=== PATIENT | female | born 1985 | race Caucasian/White ===

== ENCOUNTER → 2021-02-20 14:36 | Outpatient (CLI) | payer OTHER, SELFPAY ==
--- NOTE | 2021-02-20 14:37 | DI.US.S_ITS ---
LIMITED ULTRASOUND OF RIGHT BREAST AND AXILLA: 02/20/2021 CLINICAL: Patient returns today to evaluate two focal asymmetries in the right breast. Comparison is made to exams dated: 01/18/2021 breast MRI, 07/11/2020 ultrasound, 07/06/2020 breast MRI, and 11/19/2019 mammogram - [facility]. Color flow and real-time ultrasound of the right breast 9-10 o'clock, and axilla regions were performed. Austin scale images of the real-time examination were reviewed. There is a 0.8 cm x 0.8 cm x 0.6 cm irregular mass with a microlobulated margin in the right breast at 9:30 posterior depth 7 cm from the nipple. This irregular mass is hypoechoic with posterior acoustic enhancement. This correlates smaller than estimated on breast MRI, but corresponds fairly well with mammography findings. Color flow imaging demonstrates that there is increased vascularity in surrounding tissue. There also is a 0.9 cm x 0.6 cm x 0.3 cm oval mass with a circumscribed margin in the right breast at 9 o'clock posterior depth 7 cm from the nipple. This oval mass is hypoechoic. This correlates with mammography and breast MRI findings. Color flow imaging demonstrates that there is vascularity present. No significant abnormalities were seen sonographically in the right axilla. IMPRESSION: SUSPICIOUS OF MALIGNANCY The 0.8 cm x 0.8 cm x 0.6 cm irregular mass in the right breast at 9:30 posterior depth correlates with the MRI findings and is suspicious of malignancy. An ultrasound guided biopsy is recommended. The 0.9 cm x 0.6 cm x 0.3 cm oval mass in the right breast at 9 o'clock posterior depth is suspicious of malignancy. An ultrasound guided biopsy is recommended. Findings and recommendations were discussed with the patient in person by Dr. Victor at time of exam. This exam was interpreted at Station ID: [id number]. Electronically Signed By: Dolly underwood/:02/20/2021 17:15:13 letter sent: Biopsy Required Ultrasound BI-RADS: 4 Suspicious for malignancy
--- NOTE | 2021-02-20 14:37 | DI.MG.S_ITS ---
BILATERAL DIGITAL DIAGNOSTIC MAMMOGRAM 3D/2D: 02/20/2021 CLINICAL: Abnormal MRI. Comparison is made to exams dated: 01/18/2021 breast MRI, 07/06/2020 breast MRI, and 11/19/2019 mammogram - [facility]. The tissue of both breasts is heterogeneously dense. This may lower the sensitivity of mammography. There is a 1.1 cm oval asymmetry with an indistinct margin in the right breast at 9:30 posterior depth. This is seen in additional views. This is more prominent compared to prior mammogram and correlates with breast MRI findings. There also is a 9 mm oval equal density asymmetry with a microlobulated margin in the right breast at 9 o'clock middle depth. This is seen in additional views. This was also present on the MRI, but not well seen on prior mammogram. No other significant masses, calcifications, or other findings are seen in either breast. IMPRESSION: INCOMPLETE: NEEDS ADDITIONAL IMAGING EVALUATION The 1.1 cm oval asymmetry in the right breast at 9:30 posterior depth correlates with MRI finding but remains indeterminate. The 9 mm oval equal density asymmetry in the right breast at 9 o'clock middle depth resembles a lymph node but remains indeterminate. An ultrasound of these areas is recommended. This was performed immediately following this exam. This exam was interpreted at Station ID: [id number]. NOTE: For mammograms, a report in lay terms will be sent to the patient. Approximately 15% of breast malignancies will not be visualized mammographically. In the management of a palpable breast mass, a negative mammogram must not discourage biopsy of a clinically suspicious lesion. Electronically Signed By: Dolly underwood/:02/20/2021 16:56:25 ACR BI-RADS Category 0: Incomplete [id number]
== END ==
PROVIDERS: PCP Family Medicine; Referring Provider Family Medicine; Visit Provider Family Medicine
DX: R92.8 Other abnormal and inconclusive findings on diagnostic imaging of breast (principal); N63.11 Unspecified lump in the right breast, upper outer quadrant; N63.15 Unspecified lump in the right breast, overlapping quadrants
CPT/HCPCS: 76642; 77066; G0279

== ENCOUNTER → 2021-02-28 07:35 | Outpatient (CLI) | payer OTHER, SELFPAY ==
--- NOTE | 2021-02-28 | DI.US.S_ITS ---
MULTIPLE ULTRASOUND GUIDED BIOPSIES RIGHT BREAST USING VACUUM DEVICE WITH MARKING DEVICES INSERTED AND POST MAMMOGRAPHIC AND ULTRASOUND IMAGIN02/28/2021 CLINICAL: Two right breast masses. PATIENT CONSENT: Risks (minor bleeding, infection, vasovagal reaction and repeat procedure), benefits and alternatives were explained to the patient and written informed consent was obtained. Correlation is made to exams dated: 02/28/2021 ultrasound biopsy, 02/28/2021 mammogram, 02/20/2021 ultrasound, 02/20/2021 mammogram - [facility], 01/18/2021 breast MRI, and 07/11/2020 ultrasound - [facility]. An ultrasound guided biopsy using real-time ultrasound was performed for the concerning 9 cm x 6 cm x 9 cm circumscribed oval mass located in the right breast at 9:30 o'clock anterior depth. The skin was prepped in the usual manner. Local anesthetic was administered to the access site. A skin rika was made in the breast. The abnormality was approached from the lateral aspect. A 13 gauge biopsy needle was placed adjacent to the abnormality under ultrasound guidance. Once the needle was documented to be in the correct location, four specimens were obtained using the Mammotome biopsy system. The patient received additional local anesthetic during the procedure. A Vision marker clip was inserted into the biopsy cavity. Post procedure mammographic and ultrasound imaging demonstrates the location device at the targeted area and partial removal of the abnormality. The specimens were sent to the laboratory for pathological analysis, labeled at #1, 9:30. A second ultrasound guided biopsy using real-time ultrasound was performed for the concerning 6 cm x 7 cm x 6 cm circumscribed oval mass located in the right breast at 9:00 o'clock middle depth. The skin was prepped in the usual manner. Local anesthetic was administered to the access site. The same single skin rika was used. The abnormality was approached from the lateral aspect. A 13 gauge biopsy needle was placed adjacent to the abnormality under ultrasound guidance. Once the needle was documented to be in the correct location, four specimens were obtained using the Mammotome biopsy system. The patient received additional local anesthetic during the procedure. A mammo clip was inserted into the biopsy cavity. A skin closure strip and a sterile dressing were applied to the single access site. Post procedure mammographic and ultrasound imaging demonstrates the location device at the targeted area and partial removal of the abnormality. The specimens were sent to the laboratory for pathological analysis. This second biopsy was titled #2, 9:00. IMPRESSION: ULTRASOUND GUIDED BIOPSY MALIGNANT Ultrasound guided biopsy of the 0.9 cm x 0.6 cm x 0.9 cm mass in the right breast at 9 o'clock anterior depth 7 cm from the nipple was successful. Pathology indicates malignant ductal carcinoma in situ (DCIS). Pathology results are concordant with imaging findings. A surgical/oncologic consultation is recommended. Ultrasound guided biopsy of the 0.6 cm x 0.7 cm x 0.6 cm mass in the right breast at 9 o'clock middle depth 7 cm from the nipple was successful. Pathology indicates benign finding. Pathology results are concordant with imaging findings. This exam was interpreted at Station ID: [id number]. Chavez Aly M.D. [facility],at/:03/02/2021 13:17:47
--- NOTE | 2021-02-28 | DI.MG.S_ITS ---
UNILATERAL RIGHT DIGITAL DIAGNOSTIC MAMMOGRAM POST-NEEDLE BIOPSY: 02/28/2021 CLINICAL: Right breast mass. Comparison is made to exams dated: 02/20/2021 mammogram - , 01/18/2021 breast MRI, and 07/06/2020 breast MRI - [facility]. The tissue of right breast is heterogeneously dense. This may lower the sensitivity of mammography. The two biopsy markers are in expected positions representing the two lesions. Lesion 1 is larger, at 9:30, and is associated with the Vision marker. Lesion 2 is smaller, at 9:00 nearby, and is associated with the smaller spiral marker. IMPRESSION: POST PROCEDURE MAMMOGRAM FOR MARKER PLACEMENT The two lesions that were biopsied today under US guidance are localized by the two types of post-biopsy markers as detailed above. This exam was interpreted at Station ID: [id number]. NOTE: For mammograms, a report in lay terms will be sent to the patient. Approximately 15% of breast malignancies will not be visualized mammographically. In the management of a palpable breast mass, a negative mammogram must not discourage biopsy of a clinically suspicious lesion. Electronically Signed By: Chavez Rabago M.D. sdh/:02/28/2021 16:17:26 ACR BI-RADS Category Post-procedure mammogram for marker placement
--- NOTE | 2021-02-28 | PATH_ITS ---
[facility] Accession Number: [id number] . 01 Material submitted: . PART A: breast - RIGHT BREAST @930 7CMFN MASS PART B: breast - RIGHT BREAST @9 OCLOCK 7CMFN MASS . 01 Diagnosis: A. Right Breast, Mass, 7 cm From Nipple, 9:30, Image-Guided Core Biopsy: Ductal carcinoma in situ. - Architecture: Solid type. - Nuclear Grade: High (grade 3). - Necrosis: Not identified. - Microcalcifications: Not associated. - Predictive Markers: Estrogen and progesterone receptors by immunohistochemistry pending, reported as an addendum. . B. Right Breast, Mass, 7 cm From Nipple, 9:00, Image-Guided Core Biopsy: Benign lymph node. Fibroglandular breast tissue without significant pathologic abnormality. Negative for malignancy. [facility] 03/01/2021 1615 Local . 01 Comment: The results of specimen A (right breast 9:30, 7 cm from nipple) are verbally provided by Dr. Reed to Nurse Laverne on 03/01/2021 at 4 PM. . 01 Electronically signed: . Lois Reed MD, Pathologist NPI- [id number] . 01 Gross description: . Received two formalin-filled containers, both labeled with the patient's name: . A. In a container labeled R breast 9:30, 7 cm FN, the specimen is received with a plastic filter in container, sample loose in container and consists of multiple yellow-neri pieces of soft tissue which range in size from 0.1 x 0.1 x 0.1 cm to 1.0 x 0.4 x 0.3 cm. All fragments are totally submitted in cassette A. B. In a container labeled R breast 9 o'clock, 7 cm FN, the specimen is received with a plastic filter in container, sample loose in container and consists of multiple fragments of yellow-neri soft tissue which range in size from less than 0.1 cm to 0.7 x 0.4 x 0.4 cm. All fragments are totally submitted in cassette B. . Possible collection date and time per requisition: 02/28/21 at 9:42. Total fixation time: Approximately 16 hours. ([id number]) /YANIRA 03/01/2021 0229 Local . 01 Pathologist provided ICD-10: N63.0 . 01 CPT . 457328, 271980, 104160, [id number] Performed at: 01 [facility] [address] [place] [address], [place], [place] [id number] MD Vitaly Dan MD Phone: [phone]
== END ==
PROVIDERS: PCP Family Medicine; Referring Provider Family Medicine; Visit Provider Family Medicine
DX: D05.11 Intraductal carcinoma in situ of right breast (principal); N63.15 Unspecified lump in the right breast, overlapping quadrants
CPT/HCPCS: 19083; 19084; 77065

== ENCOUNTER → 2021-07-27 11:21 | Outpatient (CLI) | payer OTHER, SELFPAY ==
[2021-07-27 13:34] LABS: Urine N gonorrhoeae NOT DETECTED
[2021-07-27 14:00] LABS: Urine Chlamydia NOT DETECTED
== END ==
PROVIDERS: PCP Family Medicine; Referring Provider Registered Nurse; Visit Provider Registered Nurse
DX: N89.8 Other specified noninflammatory disorders of vagina (principal)
CPT/HCPCS: 87491; 87591

== ENCOUNTER → 2021-08-10 11:21 | Outpatient (CLI) | payer OTHER, SELFPAY ==
[2021-08-10 11:57] LABS: Add Manual Diff / Slide Review NO; Basophils Absolute Auto 0 /uL (0-100); Basophils Percent Auto 0.7 % (0-2); Eosinophils Absolute Auto 100 /uL (0-450); Eosinophils Percent Auto 1.9 % (2-4); Hematocrit 40.1 % (36-46); Hemoglobin 13.1 g/dL (12.0-16.0); Lymphocytes Absolute Auto 1900 /uL (1100-4500); Lymphocytes Percent Auto 34.7 % (25-40); Mean Corpuscular HGB Conc 32.8 % (30-36); Mean Corpuscular Hemoglobin 28.3 PG (26-34); Mean Corpuscular Volume 86.1 fL (80-100); Monocytes Absolute Auto 400 /uL (0-900); Monocytes Percent Auto 6.8 % (3-14); Neutrophils Absolute Auto 3100 /uL (1500-7000); Neutrophils Percent Auto 55.9 % (50-75); Platelet Count 279 X10^3/uL (150-400); Red Blood Cell Count 4.65 X10^6/uL (4.0-5.2); Red Cell Distribution Width 13.3 % (11.6-14.8); White Blood Cell Count 5.6 X10^3/uL (4.5-11.0)
[2021-08-10 12:47] LABS: Vitamin D 25 Hydroxy (D3) 38.8 ng/mL (30.0-100.0)
[2021-08-10 12:50] LABS: Alanine Aminotransferase 23 IU/L (<35); Albumin 4.5 g/dL (3.5-5.0); Albumin Globulin Ratio 1.6 (1.0-2.8); Alkaline Phosphatase 45 U/L (38-126); Aspartate Aminotransferase 27 IU/L (14-36); BUN Creatinine Ratio 12.7 (6-22); Bilirubin Total 0.3 mg/dL (0.2-1.3); Blood Urea Nitrogen 9 mg/dL (7-17); Calcium 9.5 mg/dL (8.4-10.2); Carbon Dioxide 23 mmol/L (22-32); Chloride 105 mmol/L (98-107); Cholesterol 234 mg/dL (140-199); Estimated Glomerular Filt Rate > 60.0 mL/min (>60); Globulin 2.8 g/dL (1.7-4.1); Glucose 94 mg/dL (70-100); HDL Cholesterol 50 mg/dL (40-60); HEMOLYSIS < 15 (0-50); LDL Cholesterol Calculated 156 mg/dL (<100); Potassium 4.3 mmol/L (3.4-5.1); Sodium 140 mmol/L (137-145); Total Protein 7.3 g/dL (6.3-8.2); Triglycerides 139 mg/dL (35-150)
[2021-08-10 13:02] LABS: TSH w/ Reflex to FT4 1.36 uIU/mL (0.47-4.68)
[2021-08-10 13:32] LABS: Vitamin B12 Reflex MMA if <400 304 pg/mL (239-931)
[2021-08-15 07:44] LABS: Methylmalonic Acid,Serum 137 nmol/L (0-378)
== END ==
PROVIDERS: PCP Family Medicine; Referring Provider Family Medicine; Visit Provider Family Medicine
DX: F41.8 Other specified anxiety disorders (principal); R53.83 Other fatigue
CPT/HCPCS: 36415; 80053; 80061; 82306; 82607; 83921; 84443; 85025